=== PATIENT | female | born 1940 | race Caucasian/White ===

== ENCOUNTER 2018-11-17 13:48 | Inpatient (IN) | payer MEDICARE, BC ==
--- NOTE | 2018-11-17 14:19 | Emergency Department Record ---
History of Present Illness - General Chief Complaint: Shortness of breath Stated Complaint: SILVESTRE Time Seen by Provider: 11/17/18 14:13 Source: Patient, RN notes reviewed Mode of Arrival: EMS - History of Present Illness Initial Comments: patient has been SOB and cough progressively worse over 2 weeks and initial seen Dr. Joseph and given inhalers and not getting better and went to Dr. Joseph's office and chest xray showed LLL infiltrate and pulse ox 86% on room air and she doesn't use home oxygen. Never smoked cigs. Patient transported to the ED via EMS.PMH hypertension and uses eye drops Onset/Timin -: Week(s) Improves With: Oxygen Worsens With: Nothing Known History Of: Recurrent pneumonia - Related Data Home Oxygen Therapy: No Home Medications Medication Instructions Recorded Confirmed Last Taken Budesonide/Formoterol Fumarate 10.2 gm IH BID 11/17/18 11/17/18 11/17/18 [Symbicort 160-4.5 Mcg Inhaler] Loteprednol Etabonate [Lotemax] 5 ml OP DAILY 11/17/18 11/17/18 11/17/18 Propylene Glycol/Peg 400 [Systane 10 ml OP TID 11/17/18 11/17/18 11/17/18 0.3-0.4% Eye Drops] Timolol Maleate 0.5% 5Ml Btl 15 ml OP BID 11/17/18 11/17/18 11/17/18 [Timoptic] Previous Rx's Medication Instructions Recorded Albuterol Sulfate [Proair Hfa] 1 - 2 puff IH .EVERY 4-6 HOURS PRN 10/17/15 #1 inhaler Allergies Allergy/AdvReac Type Severity Reaction Status Date / Time fosinopril Allergy HYPERSENSIT Verified 11/17/18 14:18 IVITY meperidine HCl [From Demerol] Allergy HIVES Verified 11/17/18 14:18 methylprednisolone Allergy HYPERSENSIT Verified 11/17/18 14:18 [From Solu-Medrol] IVITY alendronate sodium AdvReac HYPERSENSIT Verified 11/17/18 14:18 [From Fosamax] IVITY Travel Screening - Travel/Exposure Within Last 30 Days Have you traveled within the last 30 days?: No - Travel/Exposure Within Last Year Have you traveled outside the [place] in the last year?: Yes Location Detail:: [place] - Additonal Travel Details Have you been exposed to anyone with a communicable illness?: No - Travel Symptoms Symptom Screening: None Review of Systems Reviewed: No additional complaints except as noted below Constitutional: Reports: As per HPI. Denies: Chills, Fever, Malaise, Night swea ts, Weakness, Weight change Eyes: Reports: As per HPI. Denies: Eye discharge, Eye pain, Photophobia, Vision change ENT: Reports: As per HPI. Denies: Congestion, Dental pain, Ear pain, Epistaxis, Hearing loss, Throat pain Respiratory: Reports: As per HPI. Denies: Cough, Dyspnea, Hemoptysis, Stridor, Wheezes Cardiovascular: Reports: As per HPI. Denies: Arrhythmia, Chest pain, Dyspnea on exertion, Edema, Murmurs, Orthopnea, Palpitations, Paroxysmal nocturnal dyspnea, Rheumatic Fever, Syncope Endocrine: Reports: As per HPI. Denies: Fatigue, Heat or cold intolerance, P olydipsia, Polyuria Gastrointestinal: Reports: As per HPI. Denies: Abdominal pain, Constipation, Diarrhea, Hematemesis, Hematochezia, Melena, Nausea, Vomiting Genitourinary: Reports: As per HPI. Denies: Abnormal menses, Discharge, Dyspareunia, Dysuria, Frequency, Hematuria, Incontinence, Retention, Urgency Musculoskeletal: Reports: As per HPI. Denies: Arthralgia, Back pain, Gout, Joint swelling, Myalgia, Neck pain Skin: Reports: As per HPI. Denies: Bruising, Change in color, Change in hair/n ails, Lesions, Pruritus, Rash Neurological: Reports: As per HPI. Denies: Abnormal gait, Confusion, Headache, Numbness, Paresthesias, Seizure, Tingling, Tremors, Vertigo, Weakness Psychiatric: Reports: As per HPI. Denies: Anxiety, Auditory hallucinations, Depression, Homicidal thoughts, Suicidal thoughts, Visual hallucinations Hematological/Lymphatic: Reports: As per HPI. Denies: Anemia, Blood Clots, Easy bleeding, Easy bruising, Swollen glands Past Medical History - SOCIAL HISTORY Smoking Status: Never smoker Alcohol Use: None Drug Use: None - RESPIRATORY Hx Respiratory Disorders: No - CARDIOVASCULAR Hx Cardio Disorders: Yes Hx Hypertension: Yes - NEURO Hx Neuro Disorders: No - GI Hx GI Disorders: Yes Hx Irritable Bowel: Yes - Hx Genitourinary Disorders: No - ENDOCRINE Hx Endocrine Disorders: Yes Comment:: Raynauds Disease - MUSCULOSKELETAL Hx Musculoskeletal Disorders: Yes - PSYCH Hx Psych Problems: No - HEMATOLOGY/ONCOLOGY Hx Hematology/Oncology Disorders: No Family Medical History Any Significant Family History?: No Hx Resp Disorders: Father Physical Exam - General General Appearance: Alert, Oriented x3, Cooperative, No acute distress - Head Head exam: Normal inspection - Eye Eye exam: Normal appearance, PERRL Pupils: Normal accommodation - ENT ENT exam: Normal exam, Mucous membranes moist, Normal external ear exam, Normal orophraynx, TM's normal bilaterally Ear exam: Normal external inspection. negative: External canal tenderness Nasal Exam: Normal inspection. negative: Discharge, Sinus tenderness Mouth exam: Normal external inspection, Tongue normal Teeth exam: Normal inspection. negative: Dental caries Throat exam: Normal inspection. negative: Tonsillar erythema, Tonsillar exudate - Neck Neck exam: Normal inspection, Full ROM. negative: Tenderness - Respiratory Respiratory exam: Normal lung sounds bilaterally. negative: Respiratory distress - Cardiovascular Cardiovascular Exam: Regular rate, Normal rhythm, Normal heart sounds - GI/Abdominal GI/Abdominal exam: Soft, Normal bowel sounds. negative: Tenderness - Rectal Rectal exam: Deferred - exam: Deferred - Extremities Extremities exam: Normal inspection, Full ROM, Normal capillary refill. negative: Tenderness - Back Back exam: Reports: Normal inspection, Full ROM. Denies: Muscle spasm, Rash noted, Tenderness - Neurological Neurological exam: Alert, Normal gait, Oriented X3, Reflexes normal - Psychiatric Psychiatric exam: Normal affect, Normal mood - Skin Skin exam: Dry, Intact, Normal color, Warm Course Vital Signs 11/17/18 13:56 Temperature 97.4 F L Pulse Rate 84 Respiratory 18 Rate Blood Pressure 122/55 Pulse Ox 97 - Reevaluation(s) Reevaluation #1: Discussed case with Dionna and will admit to Dr Schneider. 11/17/18 16:26 Medical Decision Making - Lab Data Result diagrams: 11/17/18 13:04 Disposition Clinical Impression: Hypokalemia, Hypoxia Pneumonia Qualifiers: Pneumonia type: due to unspecified organism Laterality: bilateral Lung location: lower lobe of lung Qualified Code(s): J18.1 - Lobar pneumonia, unspecified organism Decision to Admit: Admit from ER Condition: (2) Stable Forms: Patient Portal Access Time of Disposition: 16:18 Quality - Quality Measures Quality Measures: N/A - Blood Pressure Screening Does Patient Have Any of the Following: No, Active Dx of HTN Blood Pressure Classification: Pre-Hypertensive BP Reading Systolic Measurement: 122 Diastolic Measurement: 55 Screening for High Blood Pressure: Patient Exclusion, Hx of HTN [[id number]]
[2018-11-17] MEDS ORDERED: 0.9 % SODIUM CHLORIDE 1000ML 1,000 ML IV PRN (14:21)
[2018-11-17 15:00] LABS: INR 1.1; PROTHROMBIN TIME (PATIENT) 11.3 SECONDS (9.5-12.1)
[2018-11-17 15:01] LABS: BLOOD UREA NITROGEN 16 mg/dL (8-23); CREATININE 0.6 mg/dL (0.5-0.9); EST GLOMERULAR FILTRATION RATE > 60 mL/min
[2018-11-17 15:04] LABS: GLUCOSE,RANDOM 152 mg/dL (74-109)
[2018-11-17] MEDS ORDERED: CEFTRIAXONE SODIUM 2 GM in 0.9 % SODIUM CHLORIDE 100ML 100 ML IVPB ONE (16:17)
[2018-11-17] MEDS ORDERED: AZITHROMYCIN 500 MG TABLET PO ONE (16:18)
[2018-11-17 16:28] LABS: URINE APPEARANCE CLEAR; URINE BILIRUBIN NEGATIVE (NEGATIVE); URINE BLOOD MODERATE (NEGATIVE); URINE COLOR YELLOW; URINE GLUCOSE (UA) NEGATIVE (NEGATIVE); URINE KETONE NEGATIVE (NEGATIVE); URINE LEUKOCYTE ESTERASE NEGATIVE (NEGATIVE); URINE NITRITE NEGATIVE (NEGATIVE)
[2018-11-17 16:37] LABS: URINE BACTERIA FEW; URINE EPITHELIAL CELLS 0 - 2 (FEW); URINE MUCUS LIGHT; URINE WBC 0 - 2 (0-2/hpf)
[2018-11-17] MEDS ORDERED: POTASSIUM CHLORIDE 20 MEQ TABLET PO ONE (16:48)
[2018-11-17] MEDS ORDERED: ACETAMINOPHEN 325 MG TAB PO PRN (17:59)
[2018-11-17] MEDS: IPRATROPIUM/ALBUTEROL (0.5MG/3MG) NEB INH SCH ×2 (18:18→22:05)
[2018-11-17] MEDS ORDERED: 0.9 % SODIUM CHLORIDE 1000ML 1,000 ML IV ONE (20:37)
[2018-11-17] MEDS: TIMOLOL MALEATE 0.5% OPTH SCH (22:10)
[2018-11-17] MEDS: [UNRECOGNIZED DRUG - OTHER] OPTH SCH (22:10)
[2018-11-18] MEDS ORDERED: CEFTRIAXONE SODIUM 1 GM in 0.9 % SODIUM CHLORIDE 100ML 100 ML IVPB SCH (05:00)
[2018-11-18] MEDS: IPRATROPIUM/ALBUTEROL (0.5MG/3MG) NEB INH SCH ×5 (05:14→21:40)
[2018-11-18 06:34] LABS: ABSOLUTE NEUTROPHIL COUNT 7.98; HEMATOCRIT 29.7 % (35.0-47.0); HEMOGLOBIN 9.4 gm/dl (11.6-16.0); MEAN CORPUSCULAR HEMOGLOBIN 31.3 pg (27-33); MEAN CORPUSCULAR HGB CONC 31.6 g/dl (32-36); MEAN PLATELET VOLUME 8.4 fl (7.4-10.4); PLATELET COUNT 371 K/uL (130-400); RED CELL DISTRIBUTION WIDTH 14.5 % (11.5-14.5); WHITE BLOOD COUNT W/O DIFF 9.4 K/uL (4.2-12.2)
[2018-11-18 07:05] LABS: PLATELET ESTIMATE NORMAL (NORMAL)
[2018-11-18 07:06] LABS: HYPOCHROMIA 1+
[2018-11-18 07:18] LABS: ALB/GLOB RATIO 0.9 (1.1-1.8); ALBUMIN 2.9 g/dL (4.0-5.0); ALKALINE PHOSPHATASE 70 U/L (35-104); ALT/SGPT 25 U/L (<33); AST/SGOT 35 U/L (10.0-35.0); BLOOD UREA NITROGEN 12 mg/dL (8-23); CREATININE 0.5 mg/dL (0.5-0.9); EST GLOMERULAR FILTRATION RATE > 60 mL/min; GLUCOSE,RANDOM 103 mg/dL (74-109); TOTAL PROTEIN 6.3 g/dL (6.6-8.7)
--- NOTE | 2018-11-18 07:23 | RADIOLOGY REPORT ---
EXAM: CHEST, TWO VIEWS HISTORY: SHORTNESS OF BREATH, COUGH. TECHNIQUE: PA and lateral views of the chest were obtained. Comparison: Two view chest 10/14/15. FINDINGS: Stable heart size. Compared with the prior study, there is new bibasilar infiltrate particularly on the left, less so also on the right. This presumably represents basilar pneumonitis. There is likely a small associated pleural effusion in the left base as well. Follow-up films suggested to demonstrate clearing. Apical pleural thickening bilaterally. Diffuse osteopenia suggesting osteoporosis. IMPRESSION: 1. SOME NEW BIBASILAR INFILTRATE LEFT GREATER THAN RIGHT LIKELY REPRESENTING BIBASILAR PNEUMONITIS, LEFT GREATER THAN RIGHT. FOLLOW-UP FILMS SUGGESTED TO DEMONSTRATE CLEARING. 2. OSTEOPOROSIS. 3. SOME MILD APICAL PLEURAL THICKENING BILATERALLY. JOB NUMBER: [id number] [facility]
[2018-11-18] MEDS: [UNRECOGNIZED DRUG - OTHER] OPTH SCH ×3 (09:48→21:11)
[2018-11-18] MEDS: LOTEPREDNOL ETABONATE EYE OPTH SCH (09:48)
[2018-11-18] MEDS: ENOXAPARIN 40 MG/0.4 ML SYR SQ SCH (09:49)
[2018-11-18] MEDS: TIMOLOL MALEATE 0.5% OPTH SCH ×2 (09:49→21:12)
[2018-11-18] MEDS: POTASSIUM CHLORIDE 20 MEQ TABLET PO SCH ×2 (09:49→21:11)
[2018-11-18] MEDS: AZITHROMYCIN 500 MG TABLET PO SCH (09:50)
[2018-11-18] MEDS: NIFEDIPINE 30 MG TAB.ER.24 PO SCH (09:50)
[2018-11-18] MEDS ORDERED: BREO (FLUTICASONE/VILANTEROL) 100MCG/25MCG INHALER INH SCH (10:00)
[2018-11-18] MEDS ORDERED: ALBUTEROL SULFATE (0.083%) 2.5 MG/3 ML NEB INH PRN (11:43)
--- NOTE | 2018-11-18 12:13 | History & Physical ---
History of Present Illness - Date of Service Date of Service for History & Physical: 11/18/18 - History of Present Illness Admitting Diagnosis: pneumonia bilateral. hypokalemia. hypertension History of Present Illness: 78 y/o female arriving to ED from PCP office for hypoxia and pneumonia. Patient reports she has had a respiratory virus for about 2 weeks. She has seen her PCP for it and was placed on Symbicort for symptom management. She continued to worsen, having shortness of breath and cough, RA o2 was 86% and followed up with PCP yesterday. She denies ever being a smoker, no previous hx of COPD or asthma, has never used an inhaler before. Does not use home O2. PMH includes HTN, bilateral corneal transplants, ankylosing spondylitis. Upon arrival to ED SPO2 was 97% 2L, repeat CXR bibasilar infiltrate L>R with bilat apical thickening. EKG NSR with no acute changes. CBC unremarkable except hgb 9.4. Coag normal. Lactic acid normal. Troponin <0.010. Procalcitonin 0.300 with repeat 0.359. Potassium 3.2. She was given oral potassium replacement given in ED, Rocephin and Azithromycin initiated and transferred to the floor for treatment of pneumonia and hypokalemia. 11/18/18- Resting in bed comfortably, no obvious respiratory distress. Reports she feels very tired but otherwise no further complaints. Is having a productive cough. Has been afebrile and VSS since transfer to the floor. PCP: Dr Joseph Travel Screening - Travel/Exposure Within Last 30 Days Have you traveled within the last 30 days?: No - Travel/Exposure Within Last Year Have you traveled outside the [place] in the last year?: No Location Detail:: [place] - Additonal Travel Details Have you been exposed to anyone with a communicable illness?: No - Travel Symptoms Symptom Screening: Headache, Weakness, Fatigue, Vomiting, Lack of Appetite, Chills Review of Systems Constitutional: Reports: As per HPI. Denies: Chills, Fever, Malaise, Night sweats, Weakness, Weight change Eyes: Reports: As per HPI. Denies: Eye discharge, Eye pain, Photophobia, Vision change ENT: Reports: As per HPI. Denies: Congestion, Dental pain, Ear pain, Epistaxis, Hearing loss, Throat pain Respiratory: Reports: As per HPI. Denies: Cough, Dyspnea, Hemoptysis, Stridor, Wheezes Cardiovascular: Reports: As per HPI. Denies: Arrhythmia, Chest pain, Dyspnea on exertion, Edema, Murmurs, Orthopnea, Palpitations, Paroxysmal nocturnal dyspnea, Rheumatic Fever, Syncope Endocrine: Reports: As per HPI. Denies: Fatigue, Heat or cold intolerance, Polydipsia, Polyuria Gastrointestinal: Reports: As per HPI. Denies: Abdominal pain, Constipation, Diarrhea, Hematemesis, Hematochezia, Melena, Nausea, Vomiting Genitourinary: Reports: As per HPI. Denies: Abnormal menses, Discharge, Dyspareunia, Dysuria, Frequency, Hematuria, Incontinence, Retention, Urgency Musculoskeletal: Reports: As per HPI. Denies: Arthralgia, Back pain, Gout, [place]peranza nt swelling, Myalgia, Neck pain Skin: Reports: As per HPI. Denies: Bruising, Change in color, Change in hair/nails, Lesions, Pruritus, Rash Neurological: Reports: As per HPI. Denies: Abnormal gait, Confusion, Headache, Numbness, Paresthesias, Seizure, Tingling, Tremors, Vertigo, Weakness Psychiatric: Reports: As per HPI. Denies: Anxiety, Auditory hallucinations, Depression, Homicidal thoughts, Suicidal thoughts, Visual hallucinations Hematological/Lymphatic: Reports: As per HPI. Denies: Anemia, Blood Clots, Easy bleeding, Easy bruising, Swollen glands Past Medical History - SOCIAL HISTORY Smoking Status: Never smoker Alcohol Use: None Drug Use: None - RESPIRATORY Hx Respiratory Disorders: No Hx Asthma: No Hx Bronchitis: No Hx COPD: Yes Hx Dyspnea: No Hx Pneumonia: Yes Hx Pulmonary Embolism: No Hx Sleep Apnea: No Hx Tuberculosis: No Hx of CPAP: No - CARDIOVASCULAR Hx Cardio Disorders: Yes Hx Abnormal EKG: No Hx Cardiac Cath: No Hx Chest Pain: No Hx CHF: No Hx Deep Vein Thrombosis: No Hx Edema: No Hx Heart Attack: No Hx Hypertension: Yes Hx Hypotension: No Hx Irregular Heartbeat: No Hx Palpitations: No Hx Pacemaker/Defib: No Hx Vascular Disease: No - NEURO Hx Neuro Disorders: No Hx Brain Tumor: No Hx CVA: No Hx Dementia: No Hx Dizziness: No Hx Headaches: No Hx Neuropathy: No Hx Parkinson's Disease: No Hx Seizures: No Hx Speech Problem: No Hx TIA: No - GI Hx GI Disorders: Yes Hx Irritable Bowel: Yes - Hx Genitourinary Disorders: No Hx Bladder Problem: No Hx Dialysis: No Hx Kidney Stones: No Hx Renal Disease: No Hx UTI: No - ENDOCRINE Hx Endocrine Disorders: Yes Hx Diabetes: No Hx Thyroid Disease: No Comment:: Raynauds Disease - MUSCULOSKELETAL Hx Musculoskeletal Disorders: Yes Hx Arthritis: Yes Hx Back Injury: Yes (deg disk L5) Comment:: Ankylosing Spondylitis - PSYCH Hx Psych Problems: No Hx Depression: Yes (situational) Comment:: States life issues currently/depressed - HEMATOLOGY/ONCOLOGY Hx Hematology/Oncology Disorders: No Hx Anemia: Yes Comment:: Dr Rodriguez/hemotology Family Medical History Any Significant Family History?: No Hx Resp Disorders: Father H&P Meds/Allergies - Allergies Allergies: Allergies Allergy/AdvReac Type Severity Reaction Status Date / Time fosinopril Allergy HYPERSENSIT Verified 11/17/18 14:18 IVITY meperidine HCl [From Demerol] Allergy HIVES Verified 11/17/18 14:18 methylprednisolone Allergy HYPERSENSIT Verified 11/17/18 18:16 [From Solu-Medrol] IVITY alendronate sodium AdvReac HYPERSENSIT Verified 11/17/18 14:18 [From Fosamax] IVITY methotrexate AdvReac DIARRHEA Verified 11/17/18 18:15 - Home Medications Home Medications Medication Instructions Recorded Confirmed Last Taken Budesonide/Formoterol Fumarate 10.2 gm IH BID 11/17/18 11/17/18 11/17/18 [Symbicort 160-4.5 Mcg Inhaler] Loteprednol Etabonate [Lotemax] 5 ml OP DAILY 11/17/18 11/17/18 11/17/18 Propylene Glycol/Peg 400 [Systane 10 ml OP TID 11/17/18 11/17/18 11/17/18 0.3-0.4% Eye Drops] Timolol Maleate 0.5% 5Ml Btl 15 ml OP BID 11/17/18 11/17/18 11/17/18 [Timoptic] Previous Rx's Medication Instructions Recorded Albuterol Sulfate [Proair Hfa] 1 - 2 puff IH .EVERY 4-6 HOURS PRN 10/17/15 #1 inhaler - Active Medications Active Medications: Current Medications Acetaminophen (Tylenol 325mg) 650 mg PO Q6H PRN PRN Reason: PAIN - MILD(1-4)/FEVER Albuterol Sulfate (Albuterol Sulfate) 2.5 mg INH RESP.Q2H PRN PRN Reason: DIFFICULTY IN BREATHING Albuterol/Ipratropium (Duoneb) 3 ml INH RESP.Q4H.[place] [facility] Last Admin: 11/18/18 10:36 Dose: 3 ml Documented by: Azithromycin (Zithromax) 500 mg PO DAILY [facility] Last Admin: 11/18/18 09:50 Dose: 500 mg Documented by: Enoxaparin Sodium (Lovenox) 40 mg SQ DAILY [facility] Last Admin: 11/18/18 09:49 Dose: 40 mg Documented by: CEFTRIAXONE 1GM/50ML BAG (Ceftriaxone 1 Gm-D5w Bag) 1 gm in 50 mls @ 100 mls/hr IVPB Q12H [facility] Nifedipine (Procardia Xl) 30 mg PO DAILY [facility] Last Admin: 11/18/18 09:50 Dose: 30 mg Documented by: Patient Own Med: Loteprednol Etabonate [Lotemax] Eye Drop 1 each OPTH DAILY [facility] Last Admin: 11/18/18 09:48 Dose: 1 each Documented by: Patient Own Med: Systane Lubricating Drops 1 each OPTH TID [facility] Last Admin: 11/18/18 09:48 Dose: Not Given Documented by: Patient Own Med: Timolol Maleate 0.5% 5ml Btl 1 each OPTH BID [facility] Last Admin: 11/18/18 09:49 Dose: 1 each Documented by: Potassium Chloride (Klor-Con) 40 meq PO BID [facility] Stop: 11/19/18 10:00 Last Admin: 11/18/18 09:49 Dose: 40 meq Documented by: Physical Exam - Vital Signs Vital Signs: Vital Signs - Last 24 Hrs Temp Pulse Pulse Resp BP BP Pulse Ox 11/18/18 10:36 87 18 96 11/18/18 07:45 97.9 F 76 16 117/58 95 11/18/18 05:29 98.1 F 86 20 114/63 94 L 11/18/18 05:17 89 18 94 L 11/17/18 22:07 87 18 94 L 11/17/18 22:00 98.9 F 72 18 114/60 94 L 11/17/18 20:00 99.4 F 77 18 110/74 91 L 11/17/18 18:38 18 11/17/18 18:18 100 H 20 91 L 11/17/18 17:33 73 16 117/56 11/17/18 17:20 98.9 F 92 H 19 125/57 92 L 11/17/18 16:43 83 16 117/56 97 11/17/18 15:30 80 16 116/59 97 11/17/18 15:00 86 16 117/61 97 11/17/18 14:30 84 16 117/53 98 11/17/18 13:56 97.4 F L 84 18 122/55 97 - General General Appearance: Alert, Oriented x3, Cooperative, No acute distress - Head Head exam: Normal inspection - Eye Eye exam: Normal appearance, PERRL Pupils: Normal accommodation - ENT ENT exam: Normal exam, Mucous membranes moist, Normal external ear exam, Normal orophraynx, TM's normal bilaterally Ear exam: Normal external inspection. negative: External canal tenderness Nasal Exam: Normal inspection. negative: Discharge, Sinus tenderness Mouth exam: Normal external inspection, Tongue normal Teeth exam: Normal inspection. negative: Dental caries Throat exam: Normal inspection. negative: Tonsillar erythema, Tonsillar exudate - Neck Neck exam: Normal inspection, Full ROM. negative: Tenderness - Respiratory Respiratory exam: Rales (RUL, LLL). negative: Respiratory distress - Cardiovascular Cardiovascular Exam: Regular rate, Normal rhythm, Normal heart sounds Peripheral Pulses: 3+: Radial (R), Radial (L) - GI/Abdominal GI/Abdominal exam: Soft, Normal bowel sounds. negative: Tenderness - Rectal Rectal exam: Deferred - exam: Deferred - Extremities Extremities exam: Normal inspection, Full ROM, Normal capillary refill. negative: Tenderness - Back Back exam: Reports: Normal inspection, Full ROM. Denies: Muscle spasm, Rash noted, Tenderness - Neurological Neurological exam: Alert, Normal gait, Oriented X3, Reflexes normal - Psychiatric Psychiatric exam: Normal affect, Normal mood - Skin Skin exam: Dry, Intact, Normal color, Warm Results - Labs Result Diagrams: 11/18/18 06:17 11/18/18 06:17 Labs Last 24 Hours: Laboratory Results - last 24 hr 06/12/19 06/12/19 06/12/19 13:04 13:04 13:04 WBC RBC Hgb Hct MCV MCH MCHC RDW Plt Count MPV Neutrophils % Band Neutrophils % Eosinophils % Basophils % Absolute Neutrophils Lymphocytes Monocytes Platelet Estimate Hypochromasia PT 11.3 INR 1.1 APTT 31.0 Sodium 136 Potassium 3.2 L Chloride 93 L Carbon Dioxide 27.0 Anion Gap 16.0 BUN 16 Creatinine 0.6 Estimated GFR > 60 Random Glucose 152 H Lactic Acid Calcium 9.3 Total Bilirubin AST ALT Alkaline Phosphatase Troponin T < 0.010 Total Protein Albumin Globulin Albumin/Globulin Ratio Procalcitonin Urine Color Urine Appearance Urine pH Ur Specific [place] Urine Protein Urine Glucose (UA) Urine Ketones Urine Blood Urine Nitrite Urine Bilirubin Urine Urobilinogen Ur Leukocyte Esterase Urine RBC Urine WBC Ur Epithelial Cells Urine Bacteria Urine Mucus 11/17/18 11/17/18 11/17/18 13:04 14:57 16:25 WBC RBC Hgb Hct MCV MCH MCHC RDW Plt Count MPV Neutrophils % Band Neutrophils % Eosinophils % Basophils % Absolute Neutrophils Lymphocytes Monocytes Platelet Estimate Hypochromasia PT INR APTT Sodium Potassium Chloride Carbon Dioxide Anion Gap BUN Creatinine Estimated GFR Random Glucose Lactic Acid 1.1 Calcium Total Bilirubin AST ALT Alkaline Phosphatase Troponin T Total Protein Albumin Globulin Albumin/Globulin Ratio Procalcitonin 0.300 Urine Color Yellow Urine Appearance Clear Urine pH 6.0 Ur Specific [place] 1.020 Urine Protein 100 mg/dl H Urine Glucose (UA) Negative Urine Ketones Negative Urine Blood Moderate Urine Nitrite Negative Urine Bilirubin Negative Urine Urobilinogen 1.0 Ur Leukocyte Esterase Negative Urine RBC 3 - 6 Urine WBC 0 - 2 Ur Epithelial Cells 0 - 2 Urine Bacteria Few Urine Mucus Light 11/18/18 11/18/18 06:17 06:17 WBC 9.4 RBC 3.00 L Hgb 9.4 L Hct 29.7 L MCV 99.0 H MCH 31.3 MCHC 31.6 L RDW 14.5 Plt Count 371 MPV 8.4 Neutrophils % 83.0 H Band Neutrophils % 3.0 Eosinophils % Not Reportable Basophils % Not Reportable Absolute Neutrophils 7.98 Lymphocytes 6.0 L Monocytes 8.0 Platelet Estimate Normal Hypochromasia 1+ PT INR APTT Sodium 137 Potassium 2.8 L* Chloride 97 L Carbon Dioxide 27.0 Anion Gap 13.0 BUN 12 Creatinine 0.5 Estimated GFR > 60 Random Glucose 103 Lactic Acid Calcium 8.2 L Total Bilirubin 0.50 AST 35 ALT 25 Alkaline Phosphatase 70 Troponin T Total Protein 6.3 L Albumin 2.9 L Globulin 3.4 Albumin/Globulin Ratio 0.9 L Procalcitonin 0.359 Urine Color Urine Appearance Urine pH Ur Specific [place] Urine Protein Urine Glucose (UA) Urine Ketones Urine Blood Urine Nitrite Urine Bilirubin Urine Urobilinogen Ur Leukocyte Esterase Urine RBC Urine WBC Ur Epithelial Cells Urine Bacteria Urine Mucus VTE H&P Assessment - Risk for VTE Risk for VTE: Yes Risk Level: Low Risk Assessment Date: 11/18/18 Risk Assessment Time: 12:15 VTE Orders Placed or Will Be Placed: Yes Plan - Inpatient Certification Inpatient Certification: Admit to inpatient care: Based on my medical assessment, after consideration of patient's risk factors (age, co-morbidities and patient presenting symptoms and acuity), I expect that this patient will remain in the hospital greater than or equal to two midnights and that the services needed warrant inpatient care because: Patient Risk Factors: [advanced age, hypoxia, failed outpatient management] Estimated length of stay: [48-72 hr] The patient may reasonably be expected to be discharged or transferred to a hospital within 96 hours after admission to [facility]. Services needed: [IV antibiotics, oxygen supplementation, nursing] Post hospital care (if known): [] I certify that my determination is in accordance with my understanding of Medicare requirements for reasonable and necessary inpatient services. 11/18/18 12:15 - Detailed Diagnosis and Plan (1) Pneumonia Current Visit: Yes Status: Acute Qualifiers: Pneumonia type: due to unspecified organism Laterality: bilateral Lung location: lower lobe of lung Qualified Code(s): J18.1 - Lobar pneumonia, unspecified organism Base Code: J18.9 - PNEUMONIA, UNSPECIFIED ORGANISM Comment: 11/18/18 - Procalcitonin 0.300-->0.359, recheck in am - Tele- NSR - BC x2- #1 no growth - Rocephin 1gm BID, Azithromycin 500mg QD - Duoneb Q3WA, Albuterol neb Q2hr PRN - Supplemental O2 to keep SPO2>88%, trail room air prior to discharge home (2) Hypokalemia Current Visit: Yes Status: Acute Base Code: E87.6 - HYPOKALEMIA Comment: 11/18/18 - K 3.2-->potassium 20mEq-->K 2.8 - Oral potassium 40mEq BID today, recheck in am - No previous hx of chronic electrolyte imbalance (3) Hypoxia Current Visit: Yes Status: Acute Base Code: R09.02 - HYPOXEMIA Comment: 11/18/18 - See above (4) Hypertension Current Visit: No Status: Acute Base Code: I10 - ESSENTIAL (PRIMARY) HYPERTENSION Comment: 11/18/18 - Procardia 30mg QD (5) DVT prophylaxis Current Visit: No Status: Acute Base Code: [id number] - Comment: 11/18/18 - Lovenox 40mg QD
[2018-11-18] MEDS ORDERED: ONDANSETRON HCL IV 4 MG/2 ML VIAL IVP PRN (15:29)
[2018-11-18] MEDS: CEFTRIAXONE 1GM/50ML BAG 1 GM/50 ML BAG IVPB SCH (18:25)
[2018-11-19] MEDS: CEFTRIAXONE 1GM/50ML BAG 1 GM/50 ML BAG IVPB SCH ×2 (05:26→18:23)
[2018-11-19] MEDS: IPRATROPIUM/ALBUTEROL (0.5MG/3MG) NEB INH SCH ×5 (05:57→22:13)
[2018-11-19 06:56] LABS: HEMATOCRIT 29.2 % (35.0-47.0); HEMOGLOBIN 9.2 gm/dl (11.6-16.0); MEAN CORPUSCULAR HEMOGLOBIN 31.5 pg (27-33); MEAN CORPUSCULAR HGB CONC 31.5 g/dl (32-36); MEAN PLATELET VOLUME 8.3 fl (7.4-10.4); PLATELET COUNT 389 K/uL (130-400); RED BLOOD COUNT 2.92 M/uL (3.80-5.40); RED CELL DISTRIBUTION WIDTH 14.5 % (11.5-14.5); WHITE BLOOD COUNT W/O DIFF 9.6 K/uL (4.2-12.2)
[2018-11-19 07:04] LABS: BLOOD UREA NITROGEN 8 mg/dL (8-23); CREATININE 0.5 mg/dL (0.5-0.9); EST GLOMERULAR FILTRATION RATE > 60 mL/min; GLUCOSE,RANDOM 108 mg/dL (74-109)
[2018-11-19 07:17] LABS: ABSOLUTE NEUTROPHIL COUNT 8.56
[2018-11-19] MEDS: ENOXAPARIN 40 MG/0.4 ML SYR SQ SCH (10:00)
[2018-11-19] MEDS: NIFEDIPINE 30 MG TAB.ER.24 PO SCH (10:00)
[2018-11-19] MEDS: AZITHROMYCIN 500 MG TABLET PO SCH (10:00)
[2018-11-19] MEDS: POTASSIUM CHLORIDE 20 MEQ TABLET PO SCH (10:00)
[2018-11-19] MEDS: TIMOLOL MALEATE 0.5% OPTH SCH ×2 (10:08→21:36)
[2018-11-19] MEDS: LOTEPREDNOL ETABONATE EYE OPTH SCH (10:09)
[2018-11-19] MEDS: [UNRECOGNIZED DRUG - OTHER] OPTH SCH ×3 (10:09→21:36)
--- NOTE | 2018-11-19 12:37 | Physician Progress Note ---
Subjective - Date Date of Physician Progress Note: 11/19/18 - Subjective Subjective Comment: Nursing reports she had a large coughing episode in the night that produced a large amount of phlegm and since has been feeling better with improved oxygenation. No other nursing concerns. Continues to have a poor appetite and feel very weak. Objective - Vital Signs Vital Signs: Vital Signs - Last 24 Hrs Temp Pulse Pulse Resp BP BP Pulse Ox 11/19/18 10:22 85 16 93 L 11/19/18 07:50 98.9 F 77 18 108/51 96 11/19/18 06:00 98.3 F 76 20 111/51 94 L 11/19/18 05:58 74 16 94 L 11/19/18 02:00 98.1 F 74 20 110/61 94 L 11/18/18 21:42 91 H 18 94 L 11/18/18 21:01 99.8 F H 85 24 113/53 93 L 11/18/18 21:00 18 11/18/18 18:32 84 18 96 11/18/18 18:00 99.1 F 83 18 120/58 97 11/18/18 14:28 90 24 94 L 11/18/18 14:26 86 24 94 L 11/18/18 12:52 98.1 F 83 16 137/62 97 11/18/18 12:40 97.9 F 117/58 - General General Appearance: Alert, Oriented x3, Cooperative, No acute distress - Head Head exam: Normal inspection - Eye Eye exam: Normal appearance, PERRL Pupils: Normal accommodation - ENT ENT exam: Normal exam, Mucous membranes moist, Normal external ear exam, Normal orophraynx, TM's normal bilaterally Ear exam: Normal external inspection. negative: External canal tenderness Nasal Exam: Normal inspection. negative: Discharge, Sinus tenderness Mouth exam: Normal external inspection, Tongue normal Teeth exam: Normal inspection. negative: Dental caries Throat exam: Normal inspection. negative: Tonsillar erythema, Tonsillar exudate - Neck Neck exam: Normal inspection, Full ROM. negative: Tenderness - Respiratory Respiratory exam: Rales (RLL). negative: Respiratory distress - Cardiovascular Cardiovascular Exam: Regular rate, Normal rhythm, Normal heart sounds Peripheral Pulses: 3+: Radial (R), Radial (L) - GI/Abdominal GI/Abdominal exam: Soft, Normal bowel sounds. negative: Tenderness - Rectal Rectal exam: Deferred - exam: Deferred - Extremities Extremities exam: Normal inspection, Full ROM, Normal capillary refill. negative: Tenderness - Back Back exam: Reports: Normal inspection, Full ROM. Denies: Muscle spasm, Rash noted, Tenderness - Neurological Neurological exam: Alert, Normal gait, Oriented X3, Reflexes normal - Psychiatric Psychiatric exam: Normal affect, Normal mood - Skin Skin exam: Dry, Intact, Normal color, Warm Assessment and Plan - Assessment and Plan (1) Pneumonia Current Visit: Yes Status: Acute Qualifiers: Pneumonia type: due to unspecified organism Laterality: bilateral Lung location: lower lobe of lung Qualified Code(s): J18.1 - Lobar pneumonia, unspecified organism Base Code: J18.9 - PNEUMONIA, UNSPECIFIED ORGANISM Comment: 11/19/18 - Procalcitonin 0.300-->0.359--> 03.20 - Tele- NSR - x2- #1 no growth - Rocephin 1gm BID, Azithromycin 500mg QD - Duoneb Q3WA, Albuterol neb Q2hr PRN - Supplemental O2 to keep SPO2>88%, trial room air prior to discharge home (2) Hypokalemia Current Visit: Yes Status: Acute Base Code: E87.6 - HYPOKALEMIA Comment: 11/19/18 - K 3.2-->potassium 20mEq-->K 2.8--> potassium 40mEq BID--> K 3.4 - No previous hx of chronic electrolyte imbalance (3) Hypoxia Current Visit: Yes Status: Acute Base Code: R09.02 - HYPOXEMIA Comment: 11/19/18 - See above (4) Anemia Current Visit: Yes Status: Acute Qualifiers: Anemia type: unspecified type Qualified Code(s): D64.9 - Anemia, unspecified Base Code: D64.9 - ANEMIA, UNSPECIFIED Comment: 11/19/18 - Daughter reports she was diagnosed a couple years ago with thrombocytopenia, etiology unknown. Has seen Dr Rodriguez in consultation for this. Daughter to provide records (5) Hypertension Current Visit: Yes Status: Acute Base Code: I10 - ESSENTIAL (PRIMARY) HYPERTENSION Comment: 11/19/18 - Procardia 30mg QD (6) Protein calorie malnutrition Current Visit: Yes Status: Acute Base Code: E46 - UNSPECIFIED PROTEIN- CALORIE MALNUTRITION Comment: 11/19/18 - History of poor appetite - Protein and albumin low - No reported significant weight loss at home - Nutritional consult (7) Weakness Current Visit: Yes Status: Acute Base Code: R53.1 - WEAKNESS Comment: 11/19/18 - PT/OT eval - Nursing to assist with frequent ambulation (8) DVT prophylaxis Current Visit: Yes Status: Acute Base Code: [id number] - Comment: 11/19/18 - Lovenox 40mg QD Results - Labs Result Diagrams: 11/19/18 06:23 11/19/18 06:23 Labs Last 24 Hours: Laboratory Results - last 24 hr 11/19/18 11/19/18 11/19/18 06:05 06:23 06:23 WBC 9.6 RBC 2.92 L Hgb 9.2 L Hct 29.2 L MCV 100.0 H MCH 31.5 MCHC 31.5 L RDW 14.5 Plt Count 389 MPV 8.3 Neutrophils % 89.0 H Eosinophils % Not Reportable Basophils % Not Reportable Absolute Neutrophils 8.56 Lymphocytes 3.0 L Monocytes 8.0 Sodium 137 Potassium 3.4 Chloride 99 Carbon Dioxide 28.0 Anion Gap 10.0 BUN 8 Creatinine 0.5 Estimated GFR > 60 Random Glucose 108 Calcium 8.3 L Procalcitonin 0.320 DVT/PE Assessment - Risk for VTE Risk for VTE: No Risk Level: Low Risk Assessment Date: 11/18/18 Risk Assessment Time: 12:15 VTE Orders Placed or Will Be Placed: Yes - Active Medicaitons Current Medications: Current Medications Acetaminophen (Tylenol 325mg) 650 mg PO Q6H PRN PRN Reason: PAIN - MILD(1-4)/FEVER Albuterol Sulfate (Albuterol Sulfate) 2.5 mg INH RESP.Q2H PRN PRN Reason: DIFFICULTY IN BREATHING Albuterol/Ipratropium (Duoneb) 3 ml INH RESP.Q4H.WA [facility] Last Admin: 11/19/18 10:21 Dose: 3 ml Documented by: Azithromycin (Zithromax) 500 mg PO DAILY [facility] Last Admin: 11/19/18 10:00 Dose: 500 mg Documented by: Enoxaparin Sodium (Lovenox) 40 mg SQ DAILY [facility] Last Admin: 11/19/18 10:00 Dose: 40 mg Documented by: CEFTRIAXONE 1GM/50ML BAG (Ceftriaxone 1 Gm-D5w Bag) 1 gm in 50 mls @ 100 mls/hr IVPB Q12H [facility] Last Infusion: 11/19/18 06:15 Dose: Infused Documented by: Nifedipine (Procardia Xl) 30 mg PO DAILY [facility] Last Admin: 11/19/18 10:00 Dose: 30 mg Documented by: Ondansetron HCl (Zofran) 4 mg IVP Q4H PRN PRN Reason: NAUSEA Last Admin: 11/18/18 15:34 Dose: 4 mg Documented by: Patient Own Med: Loteprednol Etabonate [Lotemax] Eye Drop 1 each OPTH DAILY [facility] Last Admin: 11/19/18 10:09 Dose: 1 each Documented by: Patient Own Med: Systane Lubricating Drops 1 each OPTH TID [facility] Last Admin: 11/19/18 10:09 Dose: Not Given Documented by: Patient Own Med: Timolol Maleate 0.5% 5ml Btl 1 each OPTH BID [facility] Last Admin: 11/19/18 10:08 Dose: 1 each Documented by: RITA Plan - Labs Result Diagrams: 11/19/18 06:23 11/19/18 06:23
--- NOTE | 2018-11-19 13:59 | Rehab Evaluation ---
Patient Information - Patient Information Diagnosis: kehinde pneumonia, hypokalemia, HTN Ordered Treatment: OT Evaluate and Treat Status: Initial Evaluation Surgery: No Past Medical/Surgical Hx: PAST MEDICAL/SURGICAL HISTORY Past Surgical History bilateral cornea transplants, shoulder surgery, PMH - Respiratory Hx Respiratory Disorders No Hx Asthma No Hx Bronchitis No Hx Chronic Obstructive Yes Pulmonary Disease (COPD) Hx Dyspnea No Hx Pneumonia Yes Hx Pulmonary Embolism No Hx Sleep Apnea No Hx Tuberculosis No Hx of CPAP No PMH - Cardiovascular Hx Cardiovascular Disorders Yes Hx Abnormal EKG No Hx Cardiac Catheterization No Hx Chest Pain No Hx Congestive Heart Failure No Hx Deep Vein Thrombosis No Hx Edema No Hx Heart Attack No Hx Hypertension Yes Hx Hypotension No Hx Irregular Heartbeat No Hx Palpitations No Hx Pacemaker/Defibrillator No Hx Vascular Disease No Hx Transient Ischemic Attacks No (TIA) PMH - Neuro Hx Neurological Disorders No Hx Brain Tumor No Hx Cerebrovascular Accident No Hx Dementia No Hx Dizziness No Hx Headaches No Hx Neuropathy No Hx Parkinson's Disease No Hx Seizures No Hx Speech Problem No Hx Syncope No Hx Transient Ischemic Attacks No (TIA) PMH - GI Hx Gastrointestinal Disorders Yes Hx Irritable Bowel Yes PMH - Hx Genitourinary Disorders No Patient No Hx Bladder Problem No Hx Dialysis No Hx Kidney Stones No Hx Renal Disease No Hx Urinary Tract Infection No PMH - Endocrine Hx Endocrine Disorders Yes Hx Diabetes No Hx Thyroid Disease No Comment: Raynauds Disease PMH - Musculoskeletal Hx Musculoskeletal Disorders Yes Hx Arthritis Yes Hx Back Injury Yes: deg disk L5 Comment: Ankylosing Spondylitis PMH - Psych Hx Psychiatric Problems No Hx Depression Yes: situational Comment: States life issues currently/depressed PMH - Hematology/Oncology Hx Hematology/Oncology No Disorders Hx Anemia Yes Comment: Dr Rodriguez/hemotology Premorbid Status: Detail (Pt reports she lives alone in a 1 story house, one step without a handrail at the garage entrance. She has a walk in shower, no seat or grab bars and an elevated toilet, no grab bars. She usually stands to shower. She is Ind with all ADLs and IADLs including driving. She ambulates without an assistive device and does not own any adaptive equipment.) Precautions: Craig, Fall, Other (using 2 liters of oxygen) - Time With Patient Total Time Spent With Patient (Min): 25 Treatment Procedures: Detail (OT eval low complexity) Subjective Information - Subjective Information Per Patient Objective Data - Pain Pain Present: No - Mental Status Patient Orientation: Oriented x3 - Visual Perception Appears within normal limits for therapeutic activities (Pt wears glasses) - ROM Within normal limits (Pt reports kehinde UE AROM WNL) - Strength/Tone Within normal limits (Pt reports kehinde UE strength WNL) - Coordination Appears within normal limits for therapeutic activities - Bed Mobility Independent (Ind with supine to sit) - Transfers Independent (Ind with sit to stand at EOB) - Balance Balance Sitting: Good Balance Standing: Good - Sensation Intact - Gait Detail (Pt ambulated in room with 2 liters of oxygen and SBA) - ADL's/IADL's Detail (Pt reports she is toileting with supervision from nursing. She has not attempted other self cares but does not feel that this is going to be a problem.) Therapy Assessment - Therapy Assessment Detail (Pt is Ind with functional mobility and she feels she will not have any difficulty with self cares once her pneumonia improves.) Problem List - Problem List Occupational Therapy Problem List: Detail (No current IP OT problems identified at this time.) Goals - Goals Occupational Therapy Goals: No current IP OT goals identified at this time. Prognosis - Prognosis Good Plan - Plan Occupational Therapy Plan: No further IP OT recommended at this time. Thank you for this referral.
--- NOTE | 2018-11-19 15:05 | Rehab Evaluation ---
Patient Information - Patient Information Diagnosis: kehinde pneumonia, hypokalemia, HTN Ordered Treatment: PT Evaluate and Treat Status: Initial Evaluation Surgery: No Past Medical/Surgical Hx: PAST MEDICAL/SURGICAL HISTORY Past Surgical History bilateral cornea transplants, shoulder surgery, PMH - Respiratory Hx Respiratory Disorders No Hx Asthma No Hx Bronchitis No Hx Chronic Obstructive Yes Pulmonary Disease (COPD) Hx Dyspnea No Hx Pneumonia Yes Hx Pulmonary Embolism No Hx Sleep Apnea No Hx Tuberculosis No Hx of CPAP No PMH - Cardiovascular Hx Cardiovascular Disorders Yes Hx Abnormal EKG No Hx Cardiac Catheterization No Hx Chest Pain No Hx Congestive Heart Failure No Hx Deep Vein Thrombosis No Hx Edema No Hx Heart Attack No Hx Hypertension Yes Hx Hypotension No Hx Irregular Heartbeat No Hx Palpitations No Hx Pacemaker/Defibrillator No Hx Vascular Disease No Hx Transient Ischemic Attacks No (TIA) PMH - Neuro Hx Neurological Disorders No Hx Brain Tumor No Hx Cerebrovascular Accident No Hx Dementia No Hx Dizziness No Hx Headaches No Hx Neuropathy No Hx Parkinson's Disease No Hx Seizures No Hx Speech Problem No Hx Syncope No Hx Transient Ischemic Attacks No (TIA) PMH - GI Hx Gastrointestinal Disorders Yes Hx Irritable Bowel Yes PMH - Hx Genitourinary Disorders No Patient No Hx Bladder Problem No Hx Dialysis No Hx Kidney Stones No Hx Renal Disease No Hx Urinary Tract Infection No PMH - Endocrine Hx Endocrine Disorders Yes Hx Diabetes No Hx Thyroid Disease No Comment: Raynauds Disease PMH - Musculoskeletal Hx Musculoskeletal Disorders Yes Hx Arthritis Yes Hx Back Injury Yes: deg disk L5 Comment: Ankylosing Spondylitis PMH - Psych Hx Psychiatric Problems No Hx Depression Yes: situational Comment: States life issues currently/depressed PMH - Hematology/Oncology Hx Hematology/Oncology No Disorders Hx Anemia Yes Comment: Dr Rodriguez/hemotology Premorbid Status: Detail (Pt reports she lives alone in a 1 story house, one step without a handrail at the garage entrance. She has a walk in shower, no seat or grab bars and an elevated toilet, no grab bars. She usually stands to shower. She is Ind with all ADLs and IADLs including driving. She ambulates without an assistive device and does not own any adaptive equipment.) Precautions: Lutz, Fall, Other (using 2 liters of oxygen) - Time With Patient Total Time Spent With Patient (Min): 25 Treatment Procedures: Detail (Initial Evaluation low complexity.) Subjective Information - Subjective Information Per Patient (The patient had no complaints of pain. The patient did complain of fatigue.) Objective Data - Mental Status Patient Orientation: Oriented x3 - ROM Within normal limits (LE AROM is WFL.) - Strength/Tone Within normal limits (The patient's LE strength is generally 4+ to 5/5 throughout.) - Bed Mobility Independent (The patient is independent with supine to and from sit transfer.) - Transfers Independent (The patient is independent with sit to and from stand transfer.) - Balance Balance Sitting: Good Balance Standing: Good - Gait Detail (The patient ambulated without device independently/supervision for s afety with 2L of O2 a distance of 14 feet x 1. No shortness of breath was noted with ambulation.) Therapy Assessment - Therapy Assessment Detail (The patient was independent with all bed mobility, transfers and ambulation and normal LE strength. The patient has not PT needs at this time due to independence with functional mobility.) Problem List - Problem List Physical Therapy Problem List: Detail (No current IP PT goals have been identified.) Occupational Therapy Problem List: Detail (No current IP OT problems identified at this time.) Goals - Goals Physical Therapy Goals: No current PT goals have been identified. Occupational Therapy Goals: No current IP OT goals identified at this time. Plan - Plan Physical Therapy Plan: No further PT is recommended at this time. Thank you for the referral. Occupational Therapy Plan: No further IP OT recommended at this time. Thank you for this referral.
[2018-11-20] MEDS: CEFTRIAXONE 1GM/50ML BAG 1 GM/50 ML BAG IVPB SCH (05:33)
[2018-11-20 05:52] LABS: ABSOLUTE NEUTROPHIL COUNT 7.66; HEMATOCRIT 29.5 % (35.0-47.0); HEMOGLOBIN 9.3 gm/dl (11.6-16.0); MEAN CORPUSCULAR HEMOGLOBIN 31.5 pg (27-33); MEAN CORPUSCULAR HGB CONC 31.5 g/dl (32-36); MEAN PLATELET VOLUME 8.2 fl (7.4-10.4); PLATELET COUNT 398 K/uL (130-400); RED BLOOD COUNT 2.95 M/uL (3.80-5.40); RED CELL DISTRIBUTION WIDTH 14.4 % (11.5-14.5); WHITE BLOOD COUNT W/O DIFF 9.2 K/uL (4.2-12.2)
[2018-11-20] MEDS: IPRATROPIUM/ALBUTEROL (0.5MG/3MG) NEB INH SCH ×3 (06:00→10:16)
[2018-11-20 06:06] LABS: BLOOD UREA NITROGEN 7 mg/dL (8-23); CREATININE 0.5 mg/dL (0.5-0.9); EST GLOMERULAR FILTRATION RATE > 60 mL/min; GLUCOSE,RANDOM 102 mg/dL (74-109)
--- NOTE | 2018-11-20 09:25 | Physician Progress Note ---
Subjective - Date Date of Physician Progress Note: 11/20/18 - Subjective Subjective Comment: Patient reports she feels a lot better, has more strength. Is requesting to go to on her own. Oxygen removed and has remained >90%. Cough has been more productive. Has been afebrile over the past 24 hours. No new SILVESTRE or shortness of breath. Tele has remained NSR Objective - Vital Signs Vital Signs: Vital Signs - Last 24 Hrs Temp Pulse Pulse Resp BP BP Pulse Ox 11/20/18 07:20 98.4 F 73 21 98/48 93 L 11/20/18 06:02 88 18 95 11/20/18 06:00 98.2 F 74 18 111/52 95 11/20/18 02:00 98.0 F 73 20 113/55 93 L 11/19/18 22:20 72 18 95 11/19/18 22:19 95 11/19/18 22:16 74 18 95 11/19/18 21:00 18 11/19/18 20:39 98.1 F 78 22 115/55 96 11/19/18 18:00 98.3 F 88 80 18 113/52 95 11/19/18 14:05 88 18 94 L 11/19/18 12:53 99.1 F 77 18 106/47 95 11/19/18 10:22 85 16 93 L - General General Appearance: Alert, Oriented x3, Cooperative, No acute distress - Head Head exam: Normal inspection - Eye Eye exam: Normal appearance, PERRL Pupils: Normal accommodation - ENT ENT exam: Normal exam, Mucous membranes moist, Normal external ear exam, Normal orophraynx, TM's normal bilaterally Ear exam: Normal external inspection. negative: External canal tenderness Nasal Exam: Normal inspection. negative: Discharge, Sinus tenderness Mouth exam: Normal external inspection, Tongue normal Teeth exam: Normal inspection. negative: Dental caries Throat exam: Normal inspection. negative: Tonsillar erythema, Tonsillar exudate - Neck Neck exam: Normal inspection, Full ROM. negative: Tenderness - Respiratory Respiratory exam: Normal lung sounds bilaterally. negative: Respiratory distress - Cardiovascular Cardiovascular Exam: Regular rate, Normal rhythm, Normal heart sounds Peripheral Pulses: 3+: Radial (R), Radial (L) - GI/Abdominal GI/Abdominal exam: Soft, Normal bowel sounds. negative: Tenderness - Rectal Rectal exam: Deferred - exam: Deferred - Extremities Extremities exam: Normal inspection, Full ROM, Normal capillary refill. negative: Tenderness - Back Back exam: Reports: Normal inspection, Full ROM. Denies: Muscle spasm, Rash noted, Tenderness - Neurological Neurological exam: Alert, Normal gait, Oriented X3, Reflexes normal - Psychiatric Psychiatric exam: Normal affect, Normal mood - Skin Skin exam: Dry, Intact, Normal color, Warm Assessment and Plan - Assessment and Plan (1) Pneumonia Current Visit: Yes Status: Acute Qualifiers: Pneumonia type: due to unspecified organism Laterality: bilateral Lung l ocation: lower lobe of lung Qualified Code(s): J18.1 - Lobar pneumonia, unspecified organism Base Code: J18.9 - PNEUMONIA, UNSPECIFIED ORGANISM Comment: 11/20/18 - Procalcitonin 0.300-->0.359--> 03.20 - Tele- NSR - BC x2- #1 no growth - Has had significant clinical improvement. Plan to change IV antibiotics to PO and DC home later today - Duoneb Q3WA, Albuterol neb Q2hr PRN - Supplemental O2 to keep SPO2>88%, trial room air prior to discharge home (2) Hypokalemia Current Visit: Yes Status: Acute Base Code: E87.6 - HYPOKALEMIA Comment: 11/20/18 - K 3.2-->potassium 20mEq-->K 2.8--> potassium 40mEq BID--> K 3.4 - No previous hx of chronic electrolyte imbalance (3) Hypoxia Current Visit: Yes Status: Acute Base Code: R09.02 - HYPOXEMIA Comment: 11/20/18 - See above (4) Anemia Current Visit: Yes Status: Acute Qualifiers: Anemia type: unspecified type Qualified Code(s): D64.9 - Anemia, unspecified Base Code: D64.9 - ANEMIA, UNSPECIFIED Comment: 11/20/18 - Daughter reports she was diagnosed a couple years ago with thrombocytopenia, etiology unknown. Has seen Dr Rodriguez in consultation for this. Daughter to provide records - Hgb 9.2-9.4 and stable (5) Hypertension Current Visit: Yes Status: Acute Base Code: I10 - ESSENTIAL (PRIMARY) HYPERTENSION Comment: 11/20/18 - Procardia 30mg QD (6) Protein calorie malnutrition Current Visit: Yes Status: Acute Base Code: E46 - UNSPECIFIED PROTEIN- CALORIE MALNUTRITION Comment: 11/20/18 - History of poor appetite - Protein and albumin low - No reported significant weight loss at home - Nutritional consult completed (7) Weakness Current Visit: Yes Status: Acute Base Code: R53.1 - WEAKNESS Comment: 11/19/18 - PT/OT eval- no therapy needs per evaluation notes - Nursing to assist with frequent ambulation, patient reports she is feeling stronger and is reqesting to ambulate in room and use BR on her own- this is OK to do - Feels ready to discharge home today (8) DVT prophylaxis Current Visit: Yes Status: Acute Base Code: [id number] - Comment: 11/20/18 - Lovenox 40mg QD Results - Labs Result Diagrams: 11/20/18 05:40 11/20/18 06:00 Labs Last 24 Hours: Laboratory Results - last 24 hr 11/19/18 11/20/18 11/20/18 06:05 05:40 06:00 WBC 9.2 RBC 2.95 L Hgb 9.3 L Hct 29.5 L MCV 100.0 H MCH 31.5 MCHC 31.5 L RDW 14.4 Plt Count 398 MPV 8.2 Neutrophils % 83.0 H Band Neutrophils % 0.0 Eosinophils % Not Reportable Basophils % Not Reportable Absolute Neutrophils 7.66 Lymphocytes 10.0 L Monocytes 7.0 Basophils 0.0 Eosinophil Count 0.0 Sodium 138 Potassium 3.6 Chloride 101 Carbon Dioxide 29.0 Anion Gap 8.0 BUN 7 L Creatinine 0.5 Estimated GFR > 60 Random Glucose 102 Calcium 8.5 L Procalcitonin 0.320 DVT/PE Assessment - Risk for VTE Risk for VTE: No Risk Level: Low Risk Assessment Date: 11/18/18 Risk Assessment Time: 12:15 VTE Orders Placed or Will Be Placed: Yes - Active Medicaitons Current Medications: Current Medications Acetaminophen (Tylenol 325mg) 650 mg PO Q6H PRN PRN Reason: PAIN - MILD(1-4)/FEVER Albuterol Sulfate (Albuterol Sulfate) 2.5 mg INH RESP.Q2H PRN PRN Reason: DIFFICULTY IN BREATHING Albuterol/Ipratropium (Duoneb) 3 ml INH RESP.Q4H.WA [facility] Last Admin: 11/20/18 06:00 Dose: 3 ml Documented by: Azithromycin (Zithromax) 500 mg PO DAILY [facility] Last Admin: 11/19/18 10:00 Dose: 500 mg Documented by: Enoxaparin Sodium (Lovenox) 40 mg SQ DAILY [facility] Last Admin: 11/19/18 10:00 Dose: 40 mg Documented by: CEFTRIAXONE 1GM/50ML BAG (Ceftriaxone 1 Gm-D5w Bag) 1 gm in 50 mls @ 100 mls/hr IVPB Q12H [facility] Last Infusion: 11/20/18 06:07 Dose: Infused Documented by: Nifedipine (Procardia Xl) 30 mg PO DAILY [facility] Last Admin: 11/19/18 10:00 Dose: 30 mg Documented by: Ondansetron HCl (Zofran) 4 mg IVP Q4H PRN PRN Reason: NAUSEA Last Admin: 11/18/18 15:34 Dose: 4 mg Documented by: Patient Own Med: Loteprednol Etabonate [Lotemax] Eye Drop 1 each OPTH DAILY [facility] Last Admin: 11/19/18 10:09 Dose: 1 each Documented by: Patient Own Med: Systane Lubricating Drops 1 each OPTH TID [facility] Last Admin: 11/19/18 21:36 Dose: Not Given Documented by: Patient Own Med: Timolol Maleate 0.5% 5ml Btl 1 each OPTH BID [facility] Last Admin: 11/19/18 21:36 Dose: 1 each Documented by: RITA Plan - Labs Result Diagrams: 11/20/18 05:40 11/20/18 06:00
--- NOTE | 2018-11-20 09:35 | Discharge Summary ---
Providers Discharge Summary Date: 11/20/18 Date of admission: 11/17/18 16:54 Expected Date of Discharge: 11/20/18 Attending physician: OMAR MATA Primary care physician: DARCY JOSEPH D.O. Physical Exam - Vital Signs Vital Signs: Vital Signs - Last 24 Hrs Temp Pulse Pulse Resp BP BP Pulse Ox 11/20/18 07:20 98.4 F 73 21 98/48 93 L 11/20/18 06:02 88 18 95 11/20/18 06:00 98.2 F 74 18 111/52 95 11/20/18 02:00 98.0 F 73 20 113/55 93 L 11/19/18 22:20 72 18 95 11/19/18 22:19 95 11/19/18 22:16 74 18 95 11/19/18 21:00 18 11/19/18 20:39 98.1 F 78 22 115/55 96 11/19/18 18:00 98.3 F 88 80 18 113/52 95 11/19/18 14:05 88 18 94 L 11/19/18 12:53 99.1 F 77 18 106/47 95 11/19/18 10:22 85 16 93 L - General General Appearance: Alert, Oriented x3, Cooperative, No acute distress - Head Head exam: Normal inspection - Eye Eye exam: Normal appearance, PERRL Pupils: Normal accommodation - ENT ENT exam: Normal exam, Mucous membranes moist, Normal external ear exam, Normal orophraynx, TM's normal bilaterally Ear exam: Normal external inspection. negative: External canal tenderness Nasal Exam: Normal inspection. negative: Discharge, Sinus tenderness Mouth exam: Normal external inspection, Tongue normal Teeth exam: Normal inspection. negative: Dental caries Throat exam: Normal inspection. negative: Tonsillar erythema, Tonsillar exudate - Neck Neck exam: Normal inspection, Full ROM. negative: Tenderness - Respiratory Respiratory exam: Normal lung sounds bilaterally. negative: Respiratory distress - Cardiovascular Cardiovascular Exam: Regular rate, Normal rhythm, Normal heart sounds Peripheral Pulses: 3+: Radial (R), Radial (L) - GI/Abdominal GI/Abdominal exam: Soft, Normal bowel sounds. negative: Tenderness - Rectal Rectal exam: Deferred - exam: Deferred - Extremities Extremities exam: Normal inspection, Full ROM, Normal capillary refill. negative: Tenderness - Back Back exam: Reports: Normal inspection, Full ROM. Denies: Muscle spasm, Rash noted, Tenderness - Neurological Neurological exam: Alert, Normal gait, Oriented X3, Reflexes normal - Psychiatric Psychiatric exam: Normal affect, Normal mood - Skin Skin exam: Dry, Intact, Normal color, Warm Hospitalization - Hospitalization Admission Diagnosis: pneumonia bilateral. hypokalemia. hypertension - Problem List/Discharge Diagnosis (1) Pneumonia Status: Acute Discharge Diagnosis: Pneumonia type: due to unspecified organism Laterality: bilateral Lung location: lower lobe of lung Qualified Code(s): J18.1 - Lobar pneumonia, unspecified organism Base Code: J18.9 - PNEUMONIA, UNSPECIFIED ORGANISM Comment: 11/20/18 - Procalcitonin 0.300-->0.359--> 03.20 - Tele- NSR - BC x2- #1 no growth - Has had significant clinical improvement. Plan to change IV antibiotics to PO and DC home later today - Duoneb Q3WA, Albuterol neb Q2hr PRN - Supplemental O2 to keep SPO2>88%, trial room air prior to discharge home (2) Hypokalemia Status: Acute Base Code: E87.6 - HYPOKALEMIA Comment: 11/20/18 - K 3.2-->potassium 20mEq-->K 2.8--> potassium 40mEq BID--> K 3.4 - No previous hx of chronic electrolyte imbalance (3) Hypoxia Status: Acute Base Code: R09.02 - HYPOXEMIA Comment: 11/20/18 - See above (4) Anemia Status: Acute Discharge Diagnosis: Anemia type: unspecified type Qualified Code(s): D64.9 - Anemia, unspecified Base Code: D64.9 - ANEMIA, UNSPECIFIED Comment: 11/20/18 - Daughter reports she was diagnosed a couple years ago with thrombocytopenia, etiology unknown. Has seen Dr Rodriguez in consultation for this. Daughter to provide records - Hgb 9.2-9.4 and stable (5) Hypertension Status: Acute Base Code: I10 - ESSENTIAL (PRIMARY) HYPERTENSION Comment: 11/20/18 - Procardia 30mg QD (6) Protein calorie malnutrition Status: Acute Base Code: E46 - UNSPECIFIED PROTEIN-CALORIE MALNUTRITION Comment: 11/20/18 - History of poor appetite - Protein and albumin low - No reported significant weight loss at home - Nutritional consult completed (7) Weakness Status: Acute Base Code: R53.1 - WEAKNESS Comment: 11/19/18 - PT/OT eval- no therapy needs per evaluation notes - Nursing to assist with frequent ambulation, patient reports she is feeling stronger and is reqesting to ambulate in room and use BR on her own- this is OK to do - Feels ready to discharge home today (8) DVT prophylaxis Status: Acute Base Code: [id number] - Comment: 11/20/18 - Lovenox 40mg QD - Hospitalization Course Disposition: Home, Self-Care Hospital Course: 78 y/o female arriving to ED from PCP office for hypoxia and pneumonia. Patient reports she has had a respiratory virus for about 2 weeks. She has seen her PCP for it and was placed on Symbicort for symptom management. She continued to worsen, having shortness of breath and cough, RA o2 was 86% and followed up with PCP yesterday. She denies ever being a smoker, no previous hx of COPD or asthma, has never used an inhaler before. Does not use home O2. PMH includes HTN, bilateral corneal transplants, ankylosing spondylitis. Upon arrival to ED SPO2 was 97% 2L, repeat CXR bibasilar infiltrate L>R with bilat apical thickening. EKG NSR with no acute changes. CBC unremarkable except hgb 9.4. Coag normal. Lactic acid normal. Troponin <0.010. Procalcitonin 0.300 with repeat 0.359. Potassium 3.2. She was given oral potassium replacement given in ED, Rocephin and Azithromycin initiated and transferred to the floor for treatment of pneumonia and hypokalemia. 11/18/18- Resting in bed comfortably, no obvious respiratory distress. Reports she feels very tired but otherwise no further complaints. Is having a productive cough. Has been afebrile and VSS since transfer to the floor. 11/20/18- Hospital course unremarkable. Responded clinically to IV antibiotics, supplemental oxygen. Hypokalemic at time of admission most likely due to diarrhea and insensical loss, potassium levels normalized after PO replacement. Oxygen weaned with SPO2>90% RA. PT/OT eval completed due to weakness 2nd acute illness, there were not acute needs. She has remained afebrile and VSS. Labs stable with chronic anemia. Stable for discharge home PCP: Dr Hankenson/ Procedures: Imaging and X-Rays 11/17/18 14:25 CHEST 2 VIEWS [RAD] Stat Cardiology Procedures 11/17/18 14:21 EKG NOW 11/17/18 14:25 Civil Project Engineer NOW Abnormal Labs: Abnormal Lab Results 11/17/18 11/17/18 11/18/18 Range/Units 13:04 16:25 06:17 RBC 3.00 L (3.80-5.40) M/uL Hgb 9.4 L (11.6-16.0) gm/dl Hct 29.7 L (35.0-47.0) % MCV 99.0 H (81-97) fl MCHC 31.6 L (32-36) g/dl Neutrophils % 83.0 H (47-80) % Lymphocytes 6.0 L (16-45) % Potassium 3.2 L (3.4-4.5) mmol/L Chloride 93 L (98-107) mmol/L BUN (8-23) mg/dL Random Glucose 152 H (74-109) mg/dL Calcium (8.8-10.2) mg/dL Total Protein (6.6-8.7) g/dL Albumin (4.0-5.0) g/dL Albumin/Globulin Ratio (1.1-1.8) Urine Protein 100 mg/dl H (NEGATIVE) 11/18/18 11/19/18 11/19/18 Range/Units 06:17 06:23 06:23 RBC 2.92 L (3.80-5.40) M/uL Hgb 9.2 L (11.6-16.0) gm/dl Hct 29.2 L (35.0-47.0) % MCV 100.0 H (81-97) fl MCHC 31.5 L (32-36) g/dl Neutrophils % 89.0 H (47-80) % Lymphocytes 3.0 L (16-45) % Potassium 2.8 L* (3.4-4.5) mmol/L Chloride 97 L (98-107) mmol/L BUN (8-23) mg/dL Random Glucose (74-109) mg/dL Calcium 8.2 L 8.3 L (8.8-10.2) mg/dL Total Protein 6.3 L (6.6-8.7) g/dL Albumin 2.9 L (4.0-5.0) g/dL Albumin/Globulin Ratio 0.9 L (1.1-1.8) Urine Protein (NEGATIVE) 11/20/18 11/20/18 Range/Units 05:40 06:00 RBC 2.95 L (3.80-5.40) M/uL Hgb 9.3 L (11.6-16.0) gm/dl Hct 29.5 L (35.0-47.0) % MCV 100.0 H (81-97) fl MCHC 31.5 L (32-36) g/dl Neutrophils % 83.0 H (47-80) % Lymphocytes 10.0 L (16-45) % Potassium (3.4-4.5) mmol/L Chloride (98-107) mmol/L BUN 7 L (8-23) mg/dL Random Glucose (74-109) mg/dL Calcium 8.5 L (8.8-10.2) mg/dL Total Protein (6.6-8.7) g/dL Albumin (4.0-5.0) g/dL Albumin/Globulin Ratio (1.1-1.8) Urine Protein (NEGATIVE) Condition at Discharge: (2) Stable Discharge Medications - Discharge Medications Prescriptions: Amoxicillin/Potassium Clav [Augmentin 875Mg/125Mg] 1 each PO BID #6 tablet Home Medications: Ambulatory Orders Nifedipine [Procardia Xl] 30 mg PO DAILY 10/14/15 [Last Taken 11/17/18] Albuterol Sulfate [Proair Hfa] 1 - 2 puff IH .EVERY 4-6 HOURS PRN #1 inhaler 10/17/15 [Last Taken 11/17/18] Loteprednol Etabonate [Lotemax] 5 ml OP DAILY 11/17/18 [Last Taken 11/17/18] Propylene Glycol/Peg 400 [Systane 0.3-0.4% Eye Drops] 10 ml OP TID 11/17/18 [Last Taken 11/17/18] Timolol Maleate 0.5% 5Ml Btl [Timoptic] 15 ml OP BID 11/17/18 [Last Taken 11/17/18] Acetaminophen [Tylenol 325Mg] 650 mg PO Q6H PRN tablet 11/20/18 [Last Taken Unknown] Amoxicillin/Potassium Clav [Augmentin 875Mg/125Mg] 1 each PO BID #6 tablet 11/20/18 [Last Taken Unknown] Discharge Plan - Discharge Instructions Activity at Discharge: Increase Activity as Tolerated Diet at Discharge: Regular Diet Instructions: Pneumonitis (DC), Hypokalemia (DC), Anemia (DC), Hypoxemia (DC) Additional Instructions: Follow up appointment with Dr. Joseph November 24 at 6:30am. Office phone: . Drink 1-2 Ensure or Boost daily to help with protein needs, strength and to support poor appetite Augmentin as prescribed to complete outpatient treatment for pneumonia Quality Measures - Quality Measures Quality Measures: Advance Directives, Documentation of Current Medications in Medical Record, Elder Maltreatment Screen and Follow-Up Plan, Screening for High Blood Pressure and F/U Documented - Current Medications Quality Measure: Measure #130: Documentation of Current Medications Documentation of Current Medications: <Current Medications Documented/Reviewed> [[id number]] - Blood Pressure Screening Quality Measure: Screening for High Blood Pressure and Follow-Up Documented Does Patient Have Any of the Following: Active Dx of HTN Blood Pressure Classification: Normal BP Reading Systolic Measurement: 117 Diastolic Measurement: 58 Screening for High Blood Pressure: Patient Exclusion, Hx of HTN [[id number]] - Advance Directives Quality Measure: Measure #47: Care Plan Advance Directives Established: No Advance Directives Information Provided To Patient: Declined Advance Directives on File: No Living Will: Yes Power of Evaporator: Yes Power of Evaporator Name: CHRISTELLE DAMIAN Advance Care Planning: <Care Plan/Decision Maker Documented; Discussed & Documented> [[id number]] - Elder Abuse Suspicion Index Screening: Elder Abuse Suspicion Index Screening Rely on people for bathing, dressing, shopping, banking, etc: No Prevented from getting food, clothes, medication, etc: No Made to feel shamed or threatened by someone: No Forced to sign papers or use money against will: No Feel afraid, touched in ways not wanted or hurt physically: No Poor eye contact, withdrawn, malnourished, cuts or bruises: No Screening Result: Negative result EASI Reference Information: Ting RIVERA, Alo C, Luis Angel D, Amairani Rod.Development and validation of a tool to assist physicians identification of elder abuse: The Elder Abuse Suspicion Index (EASI ). Journal of Elder Abuse and Neglect, 2008; 20 (3): 276-300. - Elder Maltreatment Screen Quality Measures: Elder Maltreatment Screen and Follow-Up Plan Elder Maltreatment Screen: <Negative, No Follow-Up Plan Required> [G8734]
[2018-11-20] MEDS: ENOXAPARIN 40 MG/0.4 ML SYR SQ SCH (09:44)
[2018-11-20] MEDS: NIFEDIPINE 30 MG TAB.ER.24 PO SCH ×2 (09:44→16:55)
[2018-11-20] MEDS: [UNRECOGNIZED DRUG - OTHER] OPTH SCH (09:45)
[2018-11-20] MEDS: LOTEPREDNOL ETABONATE EYE OPTH SCH (09:45)
[2018-11-20] MEDS: TIMOLOL MALEATE 0.5% OPTH SCH (09:45)
[2018-11-20] MEDS ORDERED: AMOXICILLIN/POTASSIUM CLAV 875MG/125MG TABLET PO SCH (16:00)
== END 2018-11-20 14:10 | disposition home or self-care (01) | DRG 194 ==
LOC: ER 13:48 → MEDSURG 16:54
PROVIDERS: ADMIT Internal Medicine; ATTEND Internal Medicine
DX: J18.9 Pneumonia, unspecified organism (principal); E46 Unspecified protein-calorie malnutrition; E87.6 Hypokalemia; I10 Essential (primary) hypertension; R09.02 Hypoxemia; J44.9 Chronic obstructive pulmonary disease, unspecified; D64.9 Anemia, unspecified; K58.9 Irritable bowel syndrome, unspecified; I73.00 Raynaud's syndrome without gangrene; Z66 Do not resuscitate; M54.9 Dorsalgia, unspecified; D70.9 Neutropenia, unspecified; Z79.899 Other long term (current) drug therapy; Z51.81 Encounter for therapeutic drug level monitoring; M45.9 Ankylosing spondylitis of unspecified sites in spine; D69.6 Thrombocytopenia, unspecified
CPT/HCPCS: 71046; 80048; 80053; 80076; 81001; 83605; 84145; 84484; 85027; 85610; 85730; 93005; 93010; 94640; 94667; 94668; 94760; 94761; 96365; 99223; 99232; 99239; 99285; J0696; J1650; J2405; J7030